=== PATIENT | female | born 1995 | race Two or more races ===

== ENCOUNTER 2021-05-02 14:55 | Inpatient (IN) | payer BC, MEDICAID ==
[~2021-05-02] VITALS: Ht 152.4 cm; Wt 88.5 kg
[2021-05-02] MEDS ORDERED: ACETAMINOPHEN 325MG TABLET PO STA (15:10)
[2021-05-02] MEDS ORDERED: SODIUM CHLORIDE 0.9% 1,000 ML IV ONE ×2 (15:15→19:30)
[2021-05-02 16:15] LABS: BASOPHILS % 0.3 % (0.0-2.0); HEMATOCRIT. 40.9 % (36.0-48.0); HEMOGLOBIN. 14.2 g/dL (12.0-16.0); LYMPHOCYTES % 21.2 % (20.0-50.0); MEAN CORPUSCULAR HEMOGLOBIN 31.9 pg (28.0-32.0); MEAN CORPUSCULAR VOLUME 91.5 fL (81.0-99.0); MONOCYTES % 6.8 % (2.0-8.0); NEUTROPHILS % 71.7 % (40.0-76.0); RED BLOOD CELL COUNT 4.47 mill/uL (4.2-5.4); RED CELL DISTRIBUTION WIDTH 12.5 % (11.6-14.6)
[2021-05-02 16:20] LABS: CHLORIDE 102 mEq/L (98-107)
[2021-05-02 16:39] LABS: HCG SCREEN NEGATIVE
[2021-05-02 17:41] LABS: MEAN PLATELET VOLUME 9.9 fl (7.4-10.4); PLATELET 193 x1000/uL (130-400); PLATELET ESTIMATE NORMAL
[2021-05-02] MEDS ORDERED: IBUPROFEN 400MG TABLET PO ONE (19:30)
[2021-05-03] MEDS ORDERED: INDO50CA99 PO (03:20)
[2021-05-03 03:59] VITALS: BP 108/72
[2021-05-03 04:00] VITALS: BP 108/72
[2021-05-03 08:00] VITALS: BP 100/61
[2021-05-03] MEDS: CEFTRIAXONE 1,000 MG in DEXTROSE 5% WATER 50 ML IV SCH (08:07)
[2021-05-03] MEDS: AZITHROMYCIN 500 MG in DEXT 5% WATER 250 ML IV SCH (08:43)
[2021-05-03] MEDS: BENZONATATE 100MG CAPSULE PO SCH ×2 (08:43→17:29)
[2021-05-03] MEDS ORDERED: CEFTRIAXONE 1 G PREMIX 50 ML IV SCH (09:00)
[2021-05-03 12:00] VITALS: BP 119/69
[2021-05-03] MEDS: ENOXAPARIN 30MG/0.3ML SYR SUBCUT SCH ×2 (12:25→22:34)
[2021-05-03] MEDS: ACETAMINOPHEN 325MG TABLET PO PRN ×3 (12:26→22:28)
[2021-05-03 16:00] VITALS: BP 112/70
[2021-05-03 20:00] VITALS: BP 114/71
[2021-05-03] MEDS ORDERED: ALBUTEROL 6.7GM HFA INHALER ORI PRN ×2 (21:45→23:30)
[2021-05-03] MEDS: GUAIFENESIN-DM 200MG-20MG/10ML UDC PO PRN (22:33)
[2021-05-04] VITALS: BP 98/78
[2021-05-04 04:00] VITALS: BP 113/70
[2021-05-04] MEDS: BENZONATATE 100MG CAPSULE PO SCH ×2 (05:45→17:38)
[2021-05-04] MEDS: ACETAMINOPHEN 325MG TABLET PO PRN ×3 (07:58→21:20)
[2021-05-04 08:00] VITALS: BP 110/69
[2021-05-04] MEDS: CEFTRIAXONE 1,000 MG in DEXTROSE 5% WATER 50 ML IV SCH (09:32)
[2021-05-04] MEDS: ENOXAPARIN 30MG/0.3ML SYR SUBCUT SCH ×2 (09:33→21:20)
[2021-05-04] MEDS: DEXAMETHASONE 6MG TABLET PO SCH (11:15)
[2021-05-04] MEDS: AZITHROMYCIN 500 MG in DEXT 5% WATER 250 ML IV SCH (11:16)
[2021-05-04 12:00] VITALS: BP 98/54
[2021-05-04] MEDS ORDERED: LIDOCAINE HCL/PF 1% 2ML VIAL ONE (14:45)
[2021-05-04 15:26] LABS: BG BASE EXCESS 0.3 mmol/L (-2.0-2.0); BG CARBOXYHEMOGLOBIN 0.3 % (0.5-1.5); BG DEOXYHEMOGLOBIN 9.7 % (0.0-5.0); BG FRACTION INSPIRED OXYGEN 21; BG HCO3 ACT 23.5 mmol/L (22.0-26.0); BG METHEMOGLOBIN 0.3 % (0.0-1.5); BG OXYGEN SATURATION 90.2 % (92.0-98.5); BG OXYHEMOGLOBIN 89.7 % (94.0-97.0); BG PCO2 34.1 mmHg (35.0-45.0); BG PH 7.457 (7.350-7.450); BG PO2 55.3 mmHg (75.0-100.0); BG SAMPLE SITE RIGHT RADIAL; BG VENT MODE ROOM AIR
[2021-05-04 16:00] VITALS: BP 107/65
[2021-05-04 20:00] VITALS: BP 110/71
[2021-05-04] MEDS ORDERED: ZOLPIDEM TARTRATE 5MG TABLET PO PRN (21:30)
[2021-05-04 22:00] LABS: BASOPHILS % 0.4 % (0.0-2.0); HEMOGLOBIN. 13.1 g/dL (12.0-16.0); LYMPHOCYTES % 22.3 % (20.0-50.0); MEAN CORPUSCULAR HEMOGLOBIN 30.8 pg (28.0-32.0); MEAN CORPUSCULAR VOLUME 89.7 fL (81.0-99.0); MEAN PLATELET VOLUME 9.3 fl (7.4-10.4); MONOCYTES % 4.5 % (2.0-8.0); NEUTROPHILS % 72.8 % (40.0-76.0); PLATELET 252 x1000/uL (130-400); RED BLOOD CELL COUNT 4.24 mill/uL (4.2-5.4); RED CELL DISTRIBUTION WIDTH 12.5 % (11.6-14.6)
[2021-05-04 22:08] LABS: CHLORIDE 101 mEq/L (98-107)
[2021-05-05] VITALS: BP 104/79
[2021-05-05 04:00] VITALS: BP 98/45
[2021-05-05] MEDS: BENZONATATE 100MG CAPSULE PO SCH ×2 (05:29→17:08)
[2021-05-05 08:00] VITALS: BP 108/67
[2021-05-05] MEDS: CEFTRIAXONE 1,000 MG in DEXTROSE 5% WATER 50 ML IV SCH (08:06)
[2021-05-05] MEDS: DEXAMETHASONE 6MG TABLET PO SCH (08:40)
[2021-05-05] MEDS: AZITHROMYCIN 500 MG in DEXT 5% WATER 250 ML IV SCH (08:40)
[2021-05-05] MEDS: ENOXAPARIN 30MG/0.3ML SYR SUBCUT SCH ×2 (08:40→20:19)
[2021-05-05] MEDS: GUAIFENESIN-DM 200MG-20MG/10ML UDC PO PRN (08:40)
[2021-05-05 12:00] VITALS: BP 101/51
[2021-05-05] MEDS: DEXAMETHASONE 4MG TABLET PO SCH ×2 (14:05→20:20)
[2021-05-05 15:58] VITALS: BP 110/65
[2021-05-05 20:00] VITALS: BP 103/51
[2021-05-05] MEDS: ACETAMINOPHEN 325MG TABLET PO PRN (20:19)
[2021-05-06] VITALS: BP 110/62
[2021-05-06 04:00] VITALS: BP 112/58
[2021-05-06] MEDS: DEXAMETHASONE 4MG TABLET PO SCH ×3 (05:27→21:26)
[2021-05-06] MEDS: BENZONATATE 100MG CAPSULE PO SCH ×2 (05:27→18:08)
[2021-05-06 08:00] VITALS: BP 106/59
[2021-05-06] MEDS: FAMOTIDINE 20MG TABLET PO SCH ×2 (08:37→21:26)
[2021-05-06] MEDS: CEFTRIAXONE 1,000 MG in DEXTROSE 5% WATER 50 ML IV SCH (08:38)
[2021-05-06] MEDS: ENOXAPARIN 30MG/0.3ML SYR SUBCUT SCH ×2 (08:38→21:26)
[2021-05-06] MEDS: AZITHROMYCIN 500 MG in DEXT 5% WATER 250 ML IV SCH (11:02)
[2021-05-06 12:00] VITALS: BP 103/66
[2021-05-06 16:00] VITALS: BP 110/82
[2021-05-06] MEDS: MONTELUKAST SODIUM 10MG TABLET PO SCH (18:08)
[2021-05-06 20:00] VITALS: BP 113/60
[2021-05-07 00:05] VITALS: BP 98/49
[2021-05-07 04:14] VITALS: BP 108/52
[2021-05-07] MEDS: BENZONATATE 100MG CAPSULE PO SCH ×2 (05:16→16:47)
[2021-05-07] MEDS: DEXAMETHASONE 4MG TABLET PO SCH ×2 (05:16→12:42)
[2021-05-07 08:00] VITALS: BP 106/58
[2021-05-07] MEDS: AZITHROMYCIN 500 MG in DEXT 5% WATER 250 ML IV SCH (08:29)
[2021-05-07] MEDS: CEFTRIAXONE 1,000 MG in DEXTROSE 5% WATER 50 ML IV SCH (08:29)
[2021-05-07] MEDS: ENOXAPARIN 30MG/0.3ML SYR SUBCUT SCH (08:29)
[2021-05-07] MEDS: FAMOTIDINE 20MG TABLET PO SCH (08:29)
[2021-05-07 08:54] LABS: BG BASE EXCESS 1.4 mmol/L (-2.0-2.0); BG CARBOXYHEMOGLOBIN 0.3 % (0.5-1.5); BG DEOXYHEMOGLOBIN 4.4 % (0.0-5.0); BG HCO3 ACT 25.5 mmol/L (22.0-26.0); BG METHEMOGLOBIN 0.3 % (0.0-1.5); BG OXYGEN SATURATION 95.6 % (92.0-98.5); BG PCO2 38.5 mmHg (35.0-45.0); BG PH 7.439 (7.350-7.450); BG PO2 74.8 mmHg (75.0-100.0); BG SAMPLE SITE RIGHT RADIAL; BG TOTAL HEMOGLOBIN 13.4 g/dL (12.0-18.0); BG VENT MODE MASK - SIMPLE
[2021-05-07] MEDS: GUAIFENESIN-DM 200MG-20MG/10ML UDC PO PRN ×2 (09:10→16:47)
[2021-05-07] MEDS ORDERED: DEXA4TAB69 MT (11:52)
[2021-05-07 12:00] VITALS: BP 123/68
[2021-05-07 16:00] VITALS: BP 101/58
[2021-05-07 16:02] VITALS: BP 101/59
[2021-05-07] MEDS: MONTELUKAST SODIUM 10MG TABLET PO SCH (16:47)
== END 2021-05-07 18:30 | disposition home or self-care (01) | DRG 871 ==
LOC: ER 14:55 → 7WST 23:44 → EDBEDREQ 23:56 → EDBEDREQTM 23:57 → ENRESERV 05-03 01:34
PROVIDERS: ADMIT Internal Medicine; ATTEND Internal Medicine
DX: A41.89 Other specified sepsis (principal); U07.1 COVID-19; J96.01 Acute respiratory failure with hypoxia; J12.82 Pneumonia due to coronavirus disease 2019; E87.1 Hypo-osmolality and hyponatremia; E66.9 Obesity, unspecified; R74.01 Elevation of levels of liver transaminase levels; J45.909 Unspecified asthma, uncomplicated; R04.0 Epistaxis; Z68.38 Body mass index [BMI] 38.0-38.9, adult; Z71.3 Dietary counseling and surveillance
CPT/HCPCS: 36415; 36600; 71045; 80048; 80053; 82375; 82728; 82805; 83615; 84703; 85025; 85379; 86140; 87426; 93005; 99285; J0456; J0696; J1650; J3490; J7030; J7040; J7060; J8540; U0003; U0005